=== PATIENT | female | born 1975 | race Caucasian/White ===

== ENCOUNTER 2019-01-23 21:16 | Inpatient (IN) ==
[2019-01-23 22:05] LABS: BASO# 0.04 X1000 (0.0-0.2); BASO% 0.6 % (0.0-0.8); EOS# 0.06 X1000 (0.0-0.7); EOS% 0.9 % (0.0-10.0); HEMATOCRIT 41.2 % (37.0-47.0); HEMOGLOBIN 13.6 g/dL (12.0-16.0); IMM GRAN# 0.01 X1000 (0.0-0.04); IMM GRAN% 0.1 % (0.0-0.5); LYMPH# 2.46 X1000 (1.2-3.4); LYMPH% 35.2 % (20.5-51.1); MCH 30.2 PG (27-31); MCV 91.6 FL (81-99); MONO% 11.5 % (1.7-9.3); MPV 9.4 FL (7.4-10.4); NEUT# 3.61 X1000 (1.4-6.5); NEUT% 51.7 % (42.2-75.2); PLT 337 X1000 (130-400); WBC 6.98 X1000 (4.8-10.8)
[2019-01-23 22:21] LABS: INR 0.91; PROTIME 12.7 Seconds (11.0-16.0)
[2019-01-23 22:23] LABS: AGAP 10; BUN 13 mg/dL (8-22); CALCIUM 8.7 mg/dL (8.8-10.2); CHLORIDE 107 mmol/L (98-107); COSMO 285; CREATININE 0.5 mg/dL (0.5-0.9); ESTIMATED GFR > 60; GLUCOSE 92 mg/dL (70-104); POTASSIUM 3.5 mmol/L (3.5-5.1); SODIUM 143 mmol/L (136-145); TCO2 26 mmol/L (25-35)
[2019-01-23] MEDS ORDERED: LOVENOX 1 MG/KG SUBQ ONE (23:34)
[2019-01-23] MEDS ORDERED: ZOFRAN IV PRN (23:35)
--- NOTE | 2019-01-23 23:38 | PROVIDER DOCUMENTATION ---
This chart was entered by Sarai Tomlin Scribe, acting as scribe for Malorie Stern MD. HPI-Respiratory General - General Chief Complaint: Shortness of Breath Stated Complaint: SOB Time Seen by Provider: 01/23/19 21:33 Source: patient Allergies/Adverse Reactions: Patient Allergies Allergy/AdvReac Type Severity Reaction Status Date / Time latex Allergy RASH Verified 01/23/19 21:21 Home Medications: Home Medication List Medication Instructions Recorded Confirmed Last Taken Type Dextroamphetamine/Amphetamine 20 mg PO DAILY 03/01/17 03/01/17 03/01/17 History [Adderall 20 mg Tablet] Fluconazole [Diflucan] 150 mg PO DAILY #2 tab 08/25/17 Unknown Rx - History of Present Illness-Resp Nature of Presenting Problem: 43 yo f presents to the ED complaining of chest pain and dyspnea. States this began about 1 week ago and has progressively worsened. States the chest pain is a mild sharpness in her left axilla that radiates into her left upper back and left upper chest and seems to be worse with inspiration and movement. Dyspnea worsens with exertion and today has persisted. States she had a PE in 2005 and was found to have Factor V Leiden but is no longer on anticoagulation other than a daily ASA. Has noted some mild Bl ankle swelling but no calf pain or unilateral swelling. Review of Systems - Adult - REVIEW OF SYSTEMS - ADULT Constitutional: reports: no symptoms reported. denies: chills, fever, fatique Eyes: reports: no symptoms reported Ears, Nose, Mouth & Throat: reports: no symptoms reported Cardiovascular: reports: see HPI, chest pain, edema. denies: orthopnea, palpitations Respiratory: reports: see HPI, dyspnea on exertion, pleurisy, shortness of breath. denies: cough, hemoptysis, wheezing Gastrointestinal: reports: no symptoms reported Genitourinary: reports: no symptoms reported Musculoskeletal: reports: no symptoms reported Integumentary: reports: no symptoms reported Neurological: reports: no symptoms reported Psychiatric: reports: no symptoms reported Endocrine: reports: no symptoms reported Hematologic/Lymphatic: reports: no symptoms reported Allergic/Immunologic: reports: no symptoms reported All Other Systems: Reviewed and Negative Past History - Adult - PAST MEDICAL HISTORY-ADULT Review of Records: reports: Old Records Reviewed, Nursing Assessment Review, Medications Reviewed, Social history reviewed & non-contributory. Major Childhood Illnesses: reports: denies history Cardiovascular: reports: denies history Respiratory: reports: denies history Gastrointestinal: reports: denies history Obstetrical/Gynecological: reports: denies history Genitourinary: reports: denies history Musculoskeletal: reports: denies history Neurological: reports: denies history Psychiatric: reports: depression, ptsd Endocrine/Immune: reports: denies history Other Conditions: reports: other (protein c definciency) Additional History: factor 5 - PRIOR SURGERIES/PROCEDURES Surgical/Procedure History: reports: appendectomy, BTL, other (ablasion) - IMMUNIZATION STATUS Childhood Immunizations: See Nurse Assessment Flu Vaccine: See Nurse Assessment - FAMILY HISTORY Family History: reviewed, not pertinent - SOCIAL HISTORY Smoking: other (vapes) Provider spent 3-5 mins advising pt. on dangers of tobacco.: Discussed manners to quit use, and f/u contacts for add'l counseling. Substance Use: none/never Physical Exam-General - PHYSICAL EXAM-ADULT Initial Vital Signs Reviewed: Yes - CONSTITUTIONAL General Appearance: alert, mild distress, anxious. negative: cachetic, lethargic, slow to respond - EYES Eyes: PERRL/EOMI, pink conjunctivae - HEAD, EARS, NOSE, MOUTH & THROAT HENMT: normocephalic/atraumatic, moist mucous membranes, normal ENT inspection - NECK Neck: non-tender, full range of motion, supple, normal inspection - RESPIRATORY Respiratory: chest non-tender, lungs clear, normal breath sounds, no pleuratic chest pain, no respiratory distress, no accessory muscle use. negative: respiratory distress, decreased breath sounds, accessory muscle use - CARDIOVASCULAR Cardiovascular: normal peripheral pulses, regular rate, rhythm, no edema, no gallop, no JVD, no murmur. negative: JVD, bradycardia, friction rub - GASTROINTESTINAL (ABDOMEN) Abdominal Exam: normal bowel sounds, non tender, soft - LYMPHATIC Lymphatic: no adenopathy - MUSCULOSKELETAL Back Exam: normal inspection, no CVA tenderness, no vertebral tenderness Extremity: normal range of motion, non-tender, normal gait, normal inspection - SKIN Integumentary: normal color, normal turgor, warm/dry - NEUROLOGIC Neurologic: classification inspector II-XII nml as tested, grossly normal, no motor/sensory deficits - PSYCHIATRIC Psych/Mental Status: normal thought content, normal thought process, oriented x 3, anxious. negative: normal mood/affect, disheveled, depressed affect Progress - PLAN OF CARE/RESULTS Progress/Plan/Lab Results: Vital Signs - 8 hr 01/23/19 21:17 01/23/19 23:08 Temperature 97.7 F Pulse Rate 98 H 79 Respiratory Rate 20 18 Blood Pressure 151/88 102/63 O2 Sat by Pulse Oximetry 100 100 Laboratory Results - last 24 hr 01/23/19 01/23/19 01/23/19 21:56 21:56 21:56 WBC 6.98 RBC 4.50 Hgb 13.6 Hct 41.2 MCV 91.6 MCH 30.2 MCHC 33.0 RDW Std Deviation 13.0 Plt Count 337 MPV 9.4 Immature Gran % (Auto) 0.1 Neut % (Auto) 51.7 Lymph % (Auto) 35.2 Maury % (Auto) 11.5 H Eos % (Auto) 0.9 Baso % (Auto) 0.6 Immature Gran # (Auto) 0.01 Neut # (Auto) 3.61 Lymph # (Auto) 2.46 Maury # (Auto) 0.80 H Eos # (Auto) 0.06 Baso # (Auto) 0.04 PT INR Sodium 143 Potassium 3.5 Chloride 107 Carbon Dioxide 26 Anion Gap 10 BUN 13 Creatinine 0.5 Estimated GFR/1.73 m2 > 60 BUN/Creatinine Ratio 26 Glucose 92 Calculated Osmolality 285 Calcium 8.7 L Troponin T < 0.010 Boq-E-Kyhkjvfnagl Pept 01/23/19 01/23/19 21:56 21:56 WBC RBC Hgb Hct MCV MCH MCHC RDW Std Deviation Plt Count MPV Immature Gran % (Auto) Neut % (Auto) Lymph % (Auto) Maury % (Auto) Eos % (Auto) Baso % (Auto) Immature Gran # (Auto) Neut # (Auto) Lymph # (Auto) Maury # (Auto) Eos # (Auto) Baso # (Auto) PT 12.7 INR 0.91 Sodium Potassium Chloride Carbon Dioxide Anion Gap BUN Creatinine Estimated GFR/1.73 m2 BUN/Creatinine Ratio Glucose Calculated Osmolality Calcium Troponin T Laf-O-Gnyralprxmk Pept 44 Orders Category Date Time Status Admit - [facility] Routine AdmDCTranf 01/23/19 23:34 Active Activity - Up Ad Dolorse ORDERED Care 01/23/19 23:35 Active IV Insertion ORDERED Care 01/23/19 21:33 Completed Vital Signs Order ROUTINE Care 01/23/19 23:35 Active Z-Document. for Tele Applied ORDERED Care 01/23/19 23:36 Active Regular Diet Diet 01/23/19 23:[address] ANGIOGRM PULMONARY ARTERIES [CT] Stat Exams 01/23/19 21:33 Taken BASIC METABOLIC PANEL [CHEM] Stat Lab 01/23/19 21:56 Completed CBC WITH DIFF [HEME] Stat Lab 01/23/19 21:56 Completed PRO B-NATRIURETIC PEPTIDE Stat Lab 01/23/19 21:56 Completed PROTIME WITH INR [COAG] Stat Lab 01/23/19 21:56 Completed TROPONIN T Stat Lab 01/23/19 21:56 Completed Enoxaparin 1 mg/kg [Lovenox 1 mg/kg] Med 01/23/19 23:34 Discontinued 1 each SUBQ NOW ONE Morphine Med 01/23/19 23:35 Ordered 2 mg IV Q2H PRN PRN Ondansetron [Zofran] Med 01/23/19 23:35 Ordered 4 mg IV Q4H PRN PRN Oxygen Device Routine Oth 01/23/19 23:36 Completed Telemetry [OM.EQ] Routine Oth 01/23/19 23:35 Active EKG [EKG] Stat Ther 01/23/19 21:34 Ordered Transfer/Admit Order [TRANSFER] Routine Transfer 01/23/19 23:36 Ordered dyspnea and chest pain with prior PE will further evaluate for causes including but not limited to PE, ACS, CHF, PTX, muscular pain, esophageal spasm, anxiety Result Diagrams: 01/23/19 21:56 01/23/19 21:56 - REASSESSMENT Reassessment #1 Status: other (continued dyspnea but withuot hypoxia likely due to PE. Lovenox given and will admit. Discussed case with Dr. Martinez, hospitalist, who will see and admit pt.) - EKG 1 Time of EKG reading by physician:: 21:40 EKG Read and Signed by:: Malorie Stern EKG Interpretation (*Must complete 3 of following elements*): Abnormal Rate: 75 Rhythm: NSR [place]: normal QRS: normal [place] Interval: normal ST Wave: normal Comments: possible anterior infarct, age undeternined - CT/MRI 1 CT Study: Angiogram (chest) Impression: Abnormal (pulmonary embolism in a subsegmental left lower lobe pulmonary artery, lef thyroid nodule) Departure - Departure Date of Disposition Decision: 01/23/19 Time of Disposition Decision: 23:39 DIAGNOSIS: Pulmonary embolism Qualifiers: Pulmonary embolism type: unspecified Chronicity: acute Acute cor pulmonale presence: without acute cor pulmonale Qualified Code(s): I26.99 - Other pulmonary embolism without acute cor pulmonale Disposition: ADMITTED INPATIENT 09 Certified Medical Emergency: Emergent Condition: Fair Referrals and Follow-Ups: None,PCP [Primary Care Provider] - - Critical Care Note This patient required my direct & personal management of CC.: No Attestation - Physician/ KATELYNN Attestation Patient care was provided by Advanced Practice Provider:: No The physician spent face to face time with patient:: Yes Advanced Practice Provider documentation review:: Supervising physician onsite and consulted in the evaluation and care of this patient. The physician did have a face to face encounter with the patient. This chart was documented by the indicated scribe, (Sarai Tomlin Scribe) and accurately reflects the services I performed and decisions made by me, Malorie Stern MD, as attested by the provider's signature.
[2019-01-24] MEDS ORDERED: LOVENOX SUBQ ONE ×2 (00:30→15:00)
--- NOTE | 2019-01-24 03:45 | EKG Report ---
Test Performed on : 01/23/2019 9:37:38 PM Test Reason : dyspnea Blood Pressure : / mmHG Vent. Rate : 075 BPM Atrial Rate : 075 BPM P-R Int : 160 ms QRS Dur : 090 ms QT Int : 406 ms P-R-T Axes : 058 052 048 degrees QTc Int : 453 ms Normal sinus rhythm. Possible Anterior infarct (cited on or before 22-SEP-2018) Abnormal ECG When compared with ECG of 22-SEP-2018 02:12, No significant change was found Unconfirmed Result
[2019-01-24] MEDS: MORPHINE IV PRN ×3 (04:01→14:56)
[2019-01-24 07:47] VITALS: BP 91/63
--- NOTE | 2019-01-24 08:32 | Diag Imaging Result Doc PS360 ---
EXAM: CT ANGIOGRM PULMONARY ARTERIES HISTORY: dyspnea with prior PE TECHNIQUE: Routine with IV contrast. 3-D postprocessing. COMPARISON: None. FINDINGS: Preliminary interpretation given by [facility]. There is appropriate contrast opacification. This is a tiny, nonocclusive filling defect within the right lower lobe segmental artery. Series 5 image 83 No other filling defects. . No pulmonary parenchymal infiltrates, nodules, or masses. No pneumothorax. Small lung cyst left apex. There are bilateral breast implants. 13 mm hypodense nodule left lobe of the thyroid gland is noted. No mediastinal or hilar lymphadenopathy is identified. No pleural effusions. Images of the upper abdomen reveal constipation and mild body wall anasarca. IMPRESSION: 1.Tiny nonocclusive embolus right lower lobe segmental pulmonary artery. 2.13 mm of thyroid nodule. 3.Constipation. 4.Mild body wall edema. This exam was performed using automated exposure control, adjustment of mA or kV according to patient size, and/or use of iterative reconstruction technique. Electronically signed by Anitra Eng 01/24/2019 8:30 AM
[2019-01-24] MEDS ORDERED: XARELTO PO ONE (14:40)
--- NOTE | 2019-01-24 14:59 | HISTORY AND PHYSICAL ---
PRIMARY CARE PHYSICIAN: Dr. Andrews Natarajan. CHIEF COMPLAINT: Chest pain and dyspnea x1 week. HISTORY OF PRESENT ILLNESS: This is a 43-year-old female with a history of factor V Leiden, protein C deficiency, and prior pulmonary embolus in 2005. She presented to the emergency room complaining of chest pain that she described as a sharp pain. It started in her left axillary area, radiated around into her left upper back and upper chest in the clavicular area. It was exacerbated with movement and respirations. The 12 to 15 hours prior to coming to the emergency room, she developed dyspnea on exertion prompting her visit for evaluation. The patient does have a history of prior PE with a history of Factor V Leiden. She was on anticoagulation in the past, although this had been stopped and she was taking only a full-strength aspirin. CTA pulmonary was performed which revealed a tiny nonocclusive embolus in the right lower lobe segmental pulmonary artery as well as a 13 mm hypodense nodule in the left lobe of the thyroid and a small lung cyst. She was initially given Lovenox. Affordability of Xarelto was confirmed. She will be discharged on Xarelto. INCOMPLETE REPORT - DICTATION ENDS HERE Dictated by JUDITH Best for Shailesh Martinez MD cc: JUDITH Best MD
--- NOTE | 2019-01-24 19:41 | HISTORY AND PHYSICAL ---
ADDENDUM: Patient seen and examined by myself. Full note dictated and discussed with nurse practitioner. Patient has a known history of factor V Leiden. She has actually been off all anticoagulants for the last several years. She started having shortness of breath, came to the ER, subsequently diagnosed with pulmonary emboli. We will admit her to the hospital, place her on Xarelto if it is affordable. She certainly may be able to discharge home this afternoon if she is able to ambulate. Discussed with her at this point, with this being her second blood clot, that she certainly should consider taking blood thinner from now on. cc: Shailesh Martinez MD
--- NOTE | 2019-01-27 00:57 | DISCHARGE SUMMARY ---
ADMISSION DATE: 01/23/2019 DISCHARGE DATE: 01/24/2019 DISCHARGE DIAGNOSIS: 1. Pulmonary emboli. 2. Factor V Leiden deficiency. 3. Attention deficit disorder. 4. History of stroke. 5. Previous history of pulmonary emboli in 2005. CONSULTATIONS: None. PROCEDURES: None. BRIEF HOSPITAL COURSE: Patient is a very pleasant 43-year-old female who presented to the hospital, treated in the usual fashion. Was subsequently diagnosed with pulmonary emboli. She does have factor V Leiden [*]but had been off all anticoagulants in the last several years [*]pulmonary emboli in 2005. She had a very uneventful hospital course although was still short of breath down on discharge. DISPOSITION: Discussed with patient that she will have some chest pain as well as shortness of breath for the next several weeks and that should continue to improve. She will continue Xarelto at home. Discussed her that she certainly may consider staying on Xarelto indefinitely given her factor V deficiency and the fact that this is her 2nd pulmonary emboli. Regardless, we will put her on treatment dose of Xarelto currently and we will discharge her home. Greater than 30 minutes was spent in total care. cc: Shailesh Martinez MD
== END 2019-01-24 15:22 | disposition home or self-care (01) | DRG 176 ==
LOC: P.ED 21:16 → P.MEDSURG 01-24 03:16
PROVIDERS: ATTEND Family Medicine
CPT/HCPCS: 71275; 80048; 83880; 84443; 84484; 85025; 85610; 93005; 94761; 96372; 99285; J1650; J2270; J2405; Q9967